=== PATIENT | male | born 2000 | race Caucasian/White ===

== ENCOUNTER 2021-05-23 08:10 | Emergency (ER) | payer OTHER ==
[~2021-05-23] VITALS: Ht 177.8 cm; Wt 81.8 kg
[2021-05-23 08:12] VITALS: BP 116/70
== END 2021-05-23 08:37 | disposition home or self-care (01) ==
LOC: EMS 08:10
DX: N50.89 Other specified disorders of the male genital organs (principal)
CPT/HCPCS: 99281; Z7502